=== PATIENT | female | born 1970 | race Two or more races ===

== ENCOUNTER 2017-01-22 11:54 | Emergency (ER) | payer OTHER ==
[~2017-01-22] VITALS: Ht 167.6 cm; Wt 50.8 kg
[~2017-01-22 11:54] MED LIST: ALPR1TAB7 PO; HYDR-548 PO
--- NOTE | 2017-01-22 12:03 | NUR ---
Pt STEVEN CORADO, reports pt had been drinking and taking multiple medications/drugs, but unverified as to which. Pt states that she recently had dental surgery and had taken vicodin and Clover along w/vodka and got a little "nutty." Pt denies SI and HI. Pt denies CP, SOB, dizziness, n/v, no other complaints, no distress noted.
[2017-01-22] MEDS ORDERED: CLIN300C11 PO (12:05)
--- NOTE | 2017-01-22 12:46 | NUR ---
SASHA GRAMAJO WAS CALLED TO EVALUATED PT. VOICE MESSAGE WAS LEFT.
[2017-01-22 13:06] LABS: BASOPHILS # (AUTO) 0.1 K/uL (0.0-8.0); BASOPHILS % (AUTO) 1.3 % (0.0-2.0); EOSINOPHILS # (AUTO) 0.1 K/uL (0.0-0.7); EOSINOPHILS % (AUTO) 1.8 % (0.0-7.0); HEMATOCRIT 42.8 % (37-47); HEMOGLOBIN 14.7 G/DL (12.0-16.0); LYMPHOCYTES # (AUTO) 1.3 K/UL (0.8-4.8); LYMPHOCYTES % (AUTO) 21.7 % (20.5-51.5); MEAN CORPUSCULAR HEMOGLOBIN 32.2 UUG (27.0-31.0); MEAN CORPUSCULAR HGB CONC 34 g/dL (32.0-37.0); MEAN CORPUSCULAR VOLUME 93.8 FL (81.0-99.0); MONOCYTES # (AUTO) 0.4 K/UL (0.1-1.30); MONOCYTES % (AUTO) 6.4 % (0.0-11.0); NEUTROPHILS # (AUTO) 4.2 K/UL (1.8-8.9); NEUTROPHILS % (AUTO) 68.8 % (38.5-71.5); PLATELET COUNT (AUTO) 265 K/UL (150-450); RED BLOOD CELL COUNT(AUTO) 4.57 MIL/UL (4.2-5.4); WHITE BLOOD COUNT (AUTO) 6.1 K/UL (4.0-11.2)
[2017-01-22 13:11] LABS: ETHANOL 238 MG/DL (0-0)
[2017-01-22 13:26] LABS: ALANINE AMINOTRANSFERASE 21 U/L (14-59); ALKALINE PHOSPHATASE 69 U/L (50-136); ASPARTATE AMINOTRANSFERASE 26 U/L (15-37); BILIRUBIN,DIRECT 0.1 mg/dL (0.0-0.2); BILIRUBIN,TOTAL 0.6 mg/dL (0.2-1.0); CARBON DIOXIDE 28 mmol/L (21-32); CHLORIDE 103 mmol/L (98-107); CREATININE 0.8 mg/dL (0.6-1.3); GLUCOSE 57 mg/dL (74-106); TOTAL PROTEIN, SERUM 7.9 g/dL (6.4-8.2); UREA NITROGEN, BLOOD 13 mg/dL (7-18)
--- NOTE | 2017-01-22 13:31 | NUR ---
Pt sleeping in bed, no distress noted.
[2017-01-22 13:40] LABS: ACETAMINOPHEN < 2.0 ug/mL (10-30); POTASSIUM 2.8 mmol/L (3.5-5.1)
--- NOTE | 2017-01-22 13:47 | NUR ---
Endorsed pt to [facility].
--- NOTE | 2017-01-22 14:53 | NUR ---
SASHA here at bedside for crisis intervention
--- NOTE | 2017-01-22 14:58 | NUR ---
patient not answering questions. psyc eval not completed
--- NOTE | 2017-01-22 16:41 | NUR ---
awake but not conversant
--- NOTE | 2017-01-22 17:00 | NUR ---
was asked to go to bathroom, need urine specimen. patient refused to go.
--- NOTE | 2017-01-22 17:46 | NUR ---
daughter at the bedside
--- NOTE | 2017-01-22 19:15 | NUR ---
report given to Raul
--- NOTE | 2017-01-22 19:17 | NUR ---
report given to Raul
--- NOTE | 2017-01-22 19:20 | NUR ---
Patient is resting comfortably in bed with eyes closed
--- NOTE | 2017-01-22 20:00 | NUR ---
Call received from Tristin Solis, PET team, who stated that he had attempted to interview the patient earlier in the day and that due to patient's level of sedation and lack of toxicology screening he was unable. Tristin notified staff that he would return to evaluate the patient once toxicology is complete and the patient is interviewable. OTILIA notified.
--- NOTE | 2017-01-22 20:11 | NUR ---
Patient awake, requesting water which was provided.
--- NOTE | 2017-01-22 20:20 | NUR ---
Patient was asked to provide a urine sample, she stated that she would not provide a sample to staff. Patient was educated regarding the need to obtain urine specimen to medically clear patient for PET evaluation.
--- NOTE | 2017-01-22 20:32 | NUR ---
Patient eloped from facility. ER physician notified.
== END 2017-01-22 20:33 | disposition left against medical advice (07) ==
LOC: ER 11:55
DX: F19.10 Other psychoactive substance abuse, uncomplicated (principal); F32.9 Major depressive disorder, single episode, unspecified; F41.9 Anxiety disorder, unspecified; F10.10 Alcohol abuse, uncomplicated
CPT/HCPCS: 36415; 85025; A4663; G0480; G0480-TC

== ENCOUNTER 2019-05-09 19:13 | Emergency (ER) | payer OTHER ==
[~2019-05-09] VITALS: Ht 167.6 cm; Wt 60.8 kg
[~2019-05-09 19:13] MED LIST changes: +CLIN300C11 PO; +HYDR-4354 PO; -HYDR-548 PO
[2019-05-09] MEDS ORDERED: LIDOCAINE 1%-EPI 1:100,000 20 ML VIAL IJ ONE (20:30)
[2019-05-09] MEDS ORDERED: HYDROCODONE/APAP 10-325 MG TABLET PO ONE (20:30)
[2019-05-09] MEDS ORDERED: SODIUM BICARBONATE 4.2 % (NEUT) 5 ML VIAL TP ONE (20:30)
[2019-05-09] MEDS ORDERED: CEphaleXIN 500 MG CAPSULE PO ONE (20:30)
[2019-05-09] MEDS ORDERED: CEphaleXIN 500 MG CAPSULE ONE (20:47)
[2019-05-09] MEDS ORDERED: SODIUM BICARBONATE 4.2 % (NEUT) 5 ML VIAL ONE (20:48)
[2019-05-09] MEDS ORDERED: HYDROCODONE/APAP 10-325 MG TABLET ONE (20:48)
--- NOTE | 2019-05-09 21:03 | NUR ---
AT BEDSIDE FOR WOUND SUTURE FOR L DORSAL FOOT +CMS CHECK MONITORED ACCORDINGLY
--- NOTE | 2019-05-09 21:30 | NUR ---
Patient discharged to home in stable conditon. Written and verbal after care instructions given. Patient verbalizes understanding of instructions. AMBULATORY W/ ANTALGIC GAIT, REFUSED CRUTCHES ALL BELONGINGS W/ PT
[2019-05-09 22:41] VITALS: BP 126/78
== END 2019-05-09 21:30 | disposition home or self-care (01) ==
LOC: ER 19:13
DX: S91.312A Laceration without foreign body, left foot, initial encounter (principal); F41.9 Anxiety disorder, unspecified; F32.9 Major depressive disorder, single episode, unspecified; Z79.899 Other long term (current) drug therapy; Z79.2 Long term (current) use of antibiotics; W25.XXXA Contact with sharp glass, initial encounter; Y93.89 Activity, other specified; Y92.89 Other specified places as the place of occurrence of the external cause; Y99.8 Other external cause status
CPT/HCPCS: 12001; 73630; 99283; J3490 ×2; A4217; A4663

== ENCOUNTER 2019-05-10 11:26 | Emergency (ER) | payer OTHER ==
[~2019-05-10] VITALS: Ht 167.6 cm; Wt 59.0 kg
--- NOTE | 2019-05-10 12:14 | NUR ---
PT WAS EVALUATED BY DR RETANA. PT WAS D/C'D TO HOME. D/C INSTRUCTIONS GIVEN TO THE PT. GAIT IS STABLE. PT DENIES PAIN. NO BLEEDING.
[2019-05-10 12:16] VITALS: BP 129/73
== END 2019-05-10 12:17 | disposition home or self-care (01) ==
LOC: ER 11:26
DX: S91.312D Laceration without foreign body, left foot, subsequent encounter (principal); F41.9 Anxiety disorder, unspecified; F32.9 Major depressive disorder, single episode, unspecified; Z79.2 Long term (current) use of antibiotics; Z79.899 Other long term (current) drug therapy; X58.XXXD Exposure to other specified factors, subsequent encounter
CPT/HCPCS: A4217; A4663